=== PATIENT | male | born 1980 | race Caucasian/White ===

== ENCOUNTER 2020-08-31 21:04 | Emergency (ER) | payer OTHER ==
[~2020-08-31] VITALS: Ht 177.8 cm; Wt 97.5 kg
[2020-08-31 22:14] VITALS: Ht 177.8 cm; Wt 97.5 kg
[2020-08-31 23:04] VITALS: BP 155/97
== END 2020-08-31 23:04 | disposition home or self-care (01) ==
LOC: ED 21:04
DX: S91.202A Unspecified open wound of left great toe with damage to nail, initial encounter (principal); W22.8XXA Striking against or struck by other objects, initial encounter; Y93.89 Activity, other specified; Y92.89 Other specified places as the place of occurrence of the external cause; Y99.8 Other external cause status